=== PATIENT | female | born 1960 | race Caucasian/White ===

== ENCOUNTER → 2021-01-18 13:32 | Outpatient (BNVA) | payer BC, SELFPAY | PROVIDERS: PCP Pediatrics; Visit Provider Hospitalist ==

== ENCOUNTER 2021-02-05 12:55 | Outpatient (REF) | payer BC, SELFPAY ==
--- NOTE | ~2021-02-05 | XR_ITS ---
EXAMINATION: XR CHEST CLINICAL INFORMATION: Sore throat. Asthma. COVID infection. COMPARISON: Most recent chest radiograph dated 06/24/2014. TECHNIQUE: 2 views of the chest were obtained. FINDINGS: The lungs are clear. The cardiomediastinal silhouette is normal in size. There is no pleural effusion or pneumothorax. No acute osseous abnormality. XR/XR chest 2V IMPRESSION: No acute cardiopulmonary findings.
== END 2021-02-05 12:56 | disposition home or self-care (01) ==
LOC: HO.XRAY 12:55
PROVIDERS: PCP Pediatrics; Visit Provider Hospitalist
DX: J45.909 Unspecified asthma, uncomplicated (principal)
CPT/HCPCS: 71046

== ENCOUNTER 2021-02-25 09:42 | Outpatient (REF) | payer BC, SELFPAY ==
[2021-02-25 10:58] LABS: MANUAL DIFF FLAG NO
[2021-02-25 11:51] LABS: Basophils Percent Auto 0.4 % (0-2); Eosinophils Absolute Auto 0.2 X10*3/uL (0.0-0.4); Eosinophils Percent Auto 2.2 % (0-4); Hematocrit 38.3 % (37-47); Hemoglobin 12.5 g/dl (12.0-16.0); Imm Gran Abs Auto 0.03 X10*3/uL (0.00-0.03); Imm Gran Pct Auto 0.4 % (0.0-0.4); Lymphocytes Absolute Auto 2.2 X10*3/uL (1.2-4.9); Lymphocytes Percent Auto 33.2 % (20-40); Mean Corpuscular HGB Conc 32.6 g/dl (31.0-35.0); Mean Corpuscular Volume 85.7 fL (80-98); Mean Platelet Volume 9.8 fL (9.4-12.3); Monocytes Absolute Auto 0.6 X10*3/uL (0.1-1.2); Monocytes Percent Auto 9.4 % (2-11); Neutrophils Absolute Auto 3.6 X10*3/uL (2.0-8.3); Neutrophils Percent Auto 54.4 % (45-73); Platelet Count 279 X10*3/uL (160-400); Red Blood Count 4.47 X10*6/uL (4.20-5.50); Red Cell Distribution Width 13.8 % (11.0-16.0); White Blood Count 6.7 X10*3/uL (4.8-10.8)
[2021-02-25 12:47] LABS: Erythrocyte Sedimentation Rate 27 MM/HR (0-20)
[2021-02-26 04:02] LABS: SARS COV2 IgG Positive (Negative)
[2021-02-26 17:42] LABS: IgA 244 mg/dL (70-320); IgG 1170 mg/dL (600-1540); IgM 175 mg/dL (50-300)
== END 2021-02-25 09:43 | disposition home or self-care (01) ==
LOC: HO.LAB 09:42
PROVIDERS: PCP Pediatrics; Visit Provider Hospitalist
DX: J45.20 Mild intermittent asthma, uncomplicated (principal); R42 Dizziness and giddiness; B94.8 Sequelae of other specified infectious and parasitic diseases; Z01.82 Encounter for allergy testing; Z87.891 Personal history of nicotine dependence
CPT/HCPCS: 36415; 82784; 82785; 85025; 85652; 86003; 86769

== ENCOUNTER 2024-10-30 08:10 | Outpatient (AMB) | payer BC, SELFPAY ==
[2024-10-30 08:18] VITALS: BP 138/72; PULSE 70; O2SAT 96; BMI 32.0
--- NOTE | 2024-10-30 08:18 | MHC.OFFVIS ---
Vital Signs 10/30/24 08:18 Height 5 ft 3 in Weight 180 lb 12.465 oz BMI 32.0 BP 138/72 Blood Pressure Location Lt brachial Position Sitting Pulse 70 Pulse Source Pulse Oximeter Pulse Oximetry (%) 96 Oxygen Delivery Method Room Air Intake Visit Reasons: Asthma [employer] Plater Required: No Accompanied by: Self / Same As Patient Allergies No Known Allergies Allergy (Verified 10/30/24 08:20) HPI Comments Details: The patient is a 64-year-old woman with a known history of asthma. She was in her usual state health until November when she started developing flu-like symptoms. She was diagnosed with COVID-19. Mainly affected her GI tract and also her energy. She also lost her taste and smell for some time. Did not affect her asthma and did not require additional respiratory medications. However, she has noticed that she has had significant headaches and sinus pressure. She has also had a postnasal drip and cough. Her hearing has been good although she has felt dizzy and will see typically with some motion sickness. She denies any real vertiginous so changes or nausea which he is does not feel good. She has had some tinnitus as well. She does have an appointment with ENT coming up. She continues on the short-acting beta agonist for asthma she has not required any other medication. she never had an x-ray when she developed COVID. At this point she should have 1 in order to see her baseline and see if any of her symptoms are related to any lower respiratory issue. The patient has had allergy testing in the past about 10/20 years ago. She is currently contemplating starting clarity. She is very resistant on taking a lot of medications. 02/25/2021 the patient is here for sick visit. She has been noticing increasing chest tightness and wheezing for the last week or so. She has been using her rescue inhaler approximately 3 times a day. She gets partial relief. denies any fevers or chills or any sick contacts. She has been working outside in the [employer] with all the leaves. She does have a history of allergies. The patient is reluctant to take any prednisone at this time. Therefore will do additional laboratory data in addition to that whilst optimize her respiratory therapy. She is reluctant to take things for too long. I did request she tried these 2 things for now name we can reassess in a few weeks. 10/30/2024 the patient is here for pulmonary follow-up visit. Overall she is doing very well. Since the last time I saw her she has not really had to use her maintenance inhalers. She does have a rescue inhaler that she uses it seldom. Typically less than twice a week. When she does use it she gets a good response. The heat and humidity have been affecting her breathing though. She is going to monitor closely specially with the heat wave. The patient did have a chest x-ray back in 2020 that we did evaluate. It looked pretty good maybe some small amount of atelectasis in the base. Will plan to repeat the x-ray next year unless she develops any worsening symptoms she can always have it done earlier. The patient denies any other concerning symptoms. Therefore, she is going to continue with rescue inhaler she is going to monitor for allergies and she will follow-up in a year's time. [facility] Medical History (Updated 10/30/24 @ 08:54 by Valentin Pinon MD) Allergies [id number] syndrome Dizziness Sinusitis Asthma Social History Patient Tobacco Use Status: Former Tobacco user Tobacco use type: Cigarette Years Smoked: Quit at 31 years old Review of Systems Const Denies night sweats ENT Denies change in voice, Denies lip swelling, Denies mouth pain, Reports nasal congestion, Reports nasal discharge and Denies tongue swelling Card Denies chest pain Resp Reports cough and Reports wheezing GI Denies abdominal pain Musc Denies no additional complaints Neuro Denies Neuro-related abnormal movements Psych Denies no additional complaints Oc/Lymph Denies easy bleeding and Denies lymphadenopathy Aller/Immun Denies lip swelling, Denies tongue swelling and Reports wheezing Physical Exam Vital Signs: Last Vital Signs Pulse 70 10/30/24 08:18 BP 138/72 10/30/24 08:18 Pulse Ox 96 10/30/24 08:18 Oxygen Delivery Method Room Air 10/30/24 08:18 BMI result Body Mass Index 32.0 Const General: alert HEENT Ears: external ears normal and TM abnormal General nose exam: Abnormal external nose present and Nasal discharge present Face and sinus: No erythema and No edema Throat: Yes postnasal drainage and Yes cobblestoning Eyes Pupils: Equal, round and reactive pupils present EOM: No Nystagmus present Neck Neck: Yes normal visual inspection, Yes full ROM and Yes no lymphadenopathy Chest Chest palpation & inspection: normal inspection of the chest Resp Effort & Inspection: normal respiratory effort Auscultation: clear to auscultation bilaterally Cardio Rate: regular rate Rhythm: regular rhythm Heart sounds: S1 normal heart sound present and S2 normal heart sound present GI Palpation (GI): Soft to palpation and nontender Auscultation: normal bowel sounds General: Yes no CVA tenderness Back/Spine/Pelvis Back: no CVA tenderness Skin General skin exam: rashes and/or lesions noted Neuro Cranial nerves: Yes Equal, round and reactive pupils present and No Nystagmus present Assessment & Plan Assessment & Plan (1) Asthma: Code(s): J45.909 - Unspecified asthma, uncomplicated Category: Medical Qualifiers: Asthma complication type: uncomplicated Asthma persistence: intermittent Asthma severity: mild Qualified Code(s): J45.20 - Mild intermittent asthma, uncomplicated (2) Allergies: Code(s): T78.40XA - Allergy, unspecified, initial encounter Category: Medical Qualifiers: Encounter type: subsequent encounter Qualified Code(s): T78.40XD - Allergy, unspecified, subsequent encounter Plan SETH as needed antihistamine therapy as needed consider Singulair CXR in 1 yr or sooner if any issues arise Orders: Orders XR chest 2V Today J45.20 - Mild intermittent asthma, uncomplicated Medications: New albuterol sulfate 90 mcg/actuation 2 puffs inhalation Q4H PRN 8.5 grams 11RF shortness of breath or wheezing Coding Level of Care Code Est Pt Level 4 (32806) Diagnoses Mild intermittent asthma without complication J45.20 Asthma complication type: uncomplicated Asthma persistence: intermittent Asthma severity: mild Allergy, subsequent encounter T78.40XD Encounter type: subsequent encounter Time Spent (min) 17
--- OUTSIDE RECORDS SUMMARY | 2024-10-30 08:21 | XMS_ITS | Clinical Summary ---
Author Organization [facility] it Address [address] [place] [address] Care Team Providers Care Rn Or Lvn Name Role Phone Edmund Cantu MD Primary Care Provider [phone] Social History Tobacco Use Types Packs/Day Years Used Date Smoking Tobacco: Former Cigarettes Smokeless Tobacco: Never Alcohol Use Standard Drinks/Week Comments No 0 (1 standard drink = 0.6 oz pur e alcohol) Comments Unknown Sex and Gender Information Value Date Recorded Sex Assigned at Not on file Legal Sex Female 10:14 AM EST Gender Identity Not on file Sexual Orientation Not on file Obstetrics History Last Filed Vital Signs Vital Sign Reading Time Taken Comments Blood Pressure 136/78 02/14/2023 8:20 AM EDT R A rm Pulse 71 02/14/2023 7:51 AM EDT Temperature - - Respiratory Rate - - Oxygen Saturation - - Inhaled Oxygen Concentration - - Weight 81.6 kg (180 lb) 02/14/2023 7:51 AM EDT Height 157.5 cm (5' 2 ) 02/14/2023 7:51 AM EDT Body Mass Index 32.92 02/14/2023 7:51 AM EDT Plan of Treatment Health Maintenance Due Date Last Done Comments Breast Cancer Screening 1960 DTaP,Tdap,and Td Vaccines (1 - Tdap) 1977 Pneumococcal Vaccine: 50+ Ye ars (1 of 2 - PCV) 1977 Zoster Vaccines (1 of 2) 01/04/2008 RSV Immunization Adult Patie nts (1 - Risk 60-74 years 1-dose series) 2018 Colorectal Cancer Screening: Colonoscopy 04/05/2022 Depression Screening 04/05/2022 Hepatitis C Screening 04/05/2022 Osteoporosis Screening (Bone Density Screening) 04/05/2022 Social Influencers of Health Screening 04/05/2022 Falls Risk Assessment 2023 COVID-19 Vaccine (2023-2 5 season) 2024 Influenza Vaccine (Season Ended) 2025 HIB Vaccines Aged Out No longer eligi ble based on patient's age to complete this topic HPV Vaccines Aged Out No longer eligi ble based on patient's age to complete this topic Hepatitis A Vaccines Aged Out No long er eligible based on patient's age to complete this topic Hepatitis B Vaccines Aged Out No long er eligible based on patient's age to complete this topic IPV Vaccines Aged Out No longer eligi ble based on patient's age to complete this topic MMR Vaccines Aged Out No longer eligi ble based on patient's age to complete this topic Meningococcal ACWY Vaccine Aged Out N o longer eligible based on patient's age to complete this topic Meningococcal B Vaccine Aged Out No l onger eligible based on patient's age to complete this topic RSV Immunization Patients Un oniel 20 months Aged Out No longer eligible b ased on patient's age to complete this topic Varicella Vaccines Aged Out No longer eligible based on patient's age to complete this topic Care Teams Rn Or Lvn Relationship Specialty Start Date End Date Edmund Cantu MD [address] [place] [address] PCP - General Internal Medicine 05/01/14
== END 2024-10-30 08:45 | disposition home or self-care (01) ==
PROVIDERS: PCP Pediatrics; Visit Provider Hospitalist
DX: J45.20 Mild intermittent asthma, uncomplicated (principal); T78.40XD Allergy, unspecified, subsequent encounter
CPT/HCPCS: 99214